=== PATIENT | female | born 1975 | race Caucasian/White ===

== ENCOUNTER 2020-01-05 16:10 | Inpatient (IN) | payer MEDICAID, OTHER ==
[~2020-01-05] VITALS: Ht 154.9 cm; Wt 82.1 kg
[~2020-01-05 16:10] MED LIST: ASPI325T85 PO; AZIT250T PO; PENI250T2 PO
[2020-01-05] MEDS ORDERED: ACETAMINOPHEN 325MG TABLET PO ONE (16:45)
[2020-01-05] MEDS ORDERED: VANCOMYCIN 1 G PREMIX 200 ML IV ONE (16:45)
[2020-01-05] MEDS ORDERED: SODIUM CHLORIDE 0.9% 1000ML BAG (SEPSIS BOLUS) IV ONE (16:45)
[2020-01-05] MEDS ORDERED: PIPERACILLIN/TAZ 3.375G PREMIX 50 ML IV ONE (16:45)
[2020-01-05 17:13] LABS: CHLORIDE 99 mEq/L (98-107); PROTHROMBIN TIME 11.3 sec (9.6-11.0)
[2020-01-05] MEDS ORDERED: POTASSIUM CHLORIDE 20MEQ TABLET SR PO ONE (17:15)
[2020-01-05 17:20] LABS: HEMATOCRIT. 28.5 % (36.0-48.0); HEMOGLOBIN. 8.8 g/dL (12.0-16.0); MEAN CORPUSCULAR HEMOGLOBIN 20.8 pg (28.0-32.0); MEAN CORPUSCULAR VOLUME 67.2 fL (81.0-99.0); MEAN PLATELET VOLUME 8.5 fl (7.4-10.4); PLATELET 239 x1000/uL (130-400); RED BLOOD CELL COUNT 4.24 mill/uL (4.2-5.4); RED CELL DISTRIBUTION WIDTH 17.6 % (11.6-14.6)
[2020-01-05 17:27] LABS: HCG SCREEN NEGATIVE
[2020-01-05 18:43] LABS: NUCLEATED RED BLOOD CELLS 1 /100 WBC; PLATELET ESTIMATE NORMAL
[2020-01-06 03:31] LABS: CLARITY URINE CLEAR (CLEAR); COLOR URINE YELLOW (YELLOW); SPECIFIC GRAVITY URINE 1.013 (1.005-1.030)
[2020-01-06 03:32] LABS: KETONES URINE NEGATIVE (NEGATIVE); LEUKOCYTE ESTERASE URINE NEGATIVE (NEGATIVE); NITRITE URINE NEGATIVE (NEGATIVE); OCCULT BLOOD URINE NEGATIVE (NEGATIVE); PH URINE 5.5 (4.5-8.0); PROTEIN URINE NEGATIVE (NEGATIVE); UROBILINOGEN URINE 0.2 E.U./dL (0.2-1.0)
[2020-01-06 08:00] VITALS: BP 145/69
[2020-01-06 09:14] VITALS: BP 145/68
[2020-01-06] MEDS ORDERED: DEXTROSE 50% WATER 50ML SYRINGE IV PRN (09:45)
[2020-01-06 12:00] VITALS: BP 124/55
[2020-01-06] MEDS ORDERED: ACETAMINOPHEN 325MG TABLET PO PRN (12:30)
[2020-01-06] MEDS ORDERED: ONDANSETRON HCL 4MG/2ML INJ IV PRN (12:30)
[2020-01-06] MEDS ORDERED: KETOROLAC 30MG/ML VIAL IV PRN (12:30)
[2020-01-06] MEDS: INSULIN LISPRO 100 UNITS/ML SUBCUT SCH ×3 (12:42→20:47)
[2020-01-06] MEDS: BLOOD SUGAR DIAGNOSTIC STRIP TEST SCH ×3 (12:42→20:42)
[2020-01-06] MEDS ORDERED: METF-815 PO (14:44)
[2020-01-06] MEDS ORDERED: FERR325T6 PO (14:44)
[2020-01-06] MEDS: CLINDAMYCIN 600MG PREMIX 50 ML IV SCH ×2 (15:51→21:02)
[2020-01-06 16:00] VITALS: BP 145/67
[2020-01-06 17:21] LABS: TOTAL IRON BINDING CAPACITY 420 ug/dL (250-450)
[2020-01-06 20:00] VITALS: BP 140/72
[2020-01-07] VITALS: BP 123/57
[2020-01-07 04:00] VITALS: BP 112/60
[2020-01-07] MEDS: CLINDAMYCIN 600MG PREMIX 50 ML IV SCH (05:41)
[2020-01-07] MEDS: BLOOD SUGAR DIAGNOSTIC STRIP TEST SCH ×2 (05:51→12:25)
[2020-01-07] MEDS: INSULIN LISPRO 100 UNITS/ML SUBCUT SCH ×2 (07:44→12:15)
[2020-01-07 07:56] LABS: HEMATOCRIT. 23.8 % (36.0-48.0); HEMOGLOBIN. 7.5 g/dL (12.0-16.0); MEAN CORPUSCULAR HEMOGLOBIN 21.4 pg (28.0-32.0); MEAN CORPUSCULAR VOLUME 67.8 fL (81.0-99.0); MEAN PLATELET VOLUME 8.7 fl (7.4-10.4); PLATELET 190 x1000/uL (130-400); RED BLOOD CELL COUNT 3.52 mill/uL (4.2-5.4); RED CELL DISTRIBUTION WIDTH 17.8 % (11.6-14.6)
[2020-01-07 08:00] VITALS: BP 123/61
[2020-01-07 08:15] LABS: CHLORIDE 106 mEq/L (98-107)
[2020-01-07] MEDS ORDERED: POTASSIUM CHLORIDE 20MEQ TABLET SR PO NR (08:45)
[2020-01-07 12:00] VITALS: BP 132/66
[2020-01-07] MEDS ORDERED: CLIN300C11 MT (12:01)
[2020-01-07] MEDS ORDERED: DOCU-138 MT (12:01)
[2020-01-07] MEDS ORDERED: FERR325T6 MT (12:01)
[2020-01-07 12:33] LABS: PLATELET ESTIMATE NORMAL
[2020-01-07 13:11] VITALS: BP 112/68
== END 2020-01-07 14:20 | disposition home or self-care (01) | DRG 720 ==
LOC: ER 16:10 → 5WST 17:25 → EDBEDREQ 17:44 → ENRESERV 01-06 07:31
PROVIDERS: ADMIT Internal Medicine; ATTEND Internal Medicine
DX: A41.9 Sepsis, unspecified organism (principal); E87.1 Hypo-osmolality and hyponatremia; L03.115 Cellulitis of right lower limb; D64.9 Anemia, unspecified; E11.9 Type 2 diabetes mellitus without complications; E66.9 Obesity, unspecified; E87.6 Hypokalemia; I10 Essential (primary) hypertension; I25.10 Atherosclerotic heart disease of native coronary artery without angina pectoris; Z68.34 Body mass index [BMI] 34.0-34.9, adult; Z79.82 Long term (current) use of aspirin; Z79.899 Other long term (current) drug therapy
CPT/HCPCS: 36415; 71045; 80048; 80053; 81003; 82728; 82962; 83036; 83540; 83550; 83605; 83880; 84145; 84484; 84703; 85025; 93005; 93306; 99291; J1815; J2543; J3370; J3490; J7030; J7060

== ENCOUNTER 2020-03-27 09:09 | Emergency (ER) | payer MEDICAID ==
[~2020-03-27] VITALS: Ht 154.9 cm; Wt 82.0 kg
[~2020-03-27 09:09] MED LIST changes: -ASPI325T85 PO; -AZIT250T PO; +CLIN300C11 MT; +DOCU-138 MT; +FERR325T6 MT; +FERR325T6 PO; +METF-815 PO; -PENI250T2 PO
[2020-03-27 10:17] LABS: BASOPHILS % 0.4 % (0.0-2.0); EOSINOPHILS % 1.4 % (0.0-5.0); HEMATOCRIT. 28.2 % (36.0-48.0); HEMOGLOBIN. 8.7 g/dL (12.0-16.0); LYMPHOCYTES % 28.2 % (20.0-50.0); MEAN CORPUSCULAR HEMOGLOBIN 20.2 pg (28.0-32.0); MEAN CORPUSCULAR VOLUME 65.6 fL (81.0-99.0); MEAN PLATELET VOLUME 8.6 fl (7.4-10.4); MONOCYTES % 9.6 % (2.0-8.0); NEUTROPHILS % 60.4 % (40.0-76.0); PLATELET 256 x1000/uL (130-400); PROTHROMBIN TIME 10.4 sec (9.6-11.0); RED BLOOD CELL COUNT 4.29 mill/uL (4.2-5.4); RED CELL DISTRIBUTION WIDTH 18.5 % (11.6-14.6)
[2020-03-27 10:20] LABS: CHLORIDE 102 mEq/L (98-107)
[2020-03-27] MEDS ORDERED: MAGNESIUM 2 G PREMIX 50 ML IV ONE (10:30)
[2020-03-27 10:57] LABS: PLATELET ESTIMATE NORMAL
[2020-03-27] MEDS ORDERED: POTASSIUM CHLORIDE 20MEQ TABLET SR PO ONE (11:00)
[2020-03-27] MEDS ORDERED: CALCIUM GLUCONATE 100MG/ML 10ML VIAL IV ONE (11:30)
[2020-03-27 13:25] VITALS: BP 140/58
== END 2020-03-27 13:43 | disposition home or self-care (01) ==
LOC: ER 09:09
DX: E87.6 Hypokalemia (principal); M79.89 Other specified soft tissue disorders; E83.51 Hypocalcemia; D64.9 Anemia, unspecified; R03.0 Elevated blood-pressure reading, without diagnosis of hypertension; R79.89 Other specified abnormal findings of blood chemistry; I45.10 Unspecified right bundle-branch block; E11.9 Type 2 diabetes mellitus without complications; I25.10 Atherosclerotic heart disease of native coronary artery without angina pectoris; Z95.1 Presence of aortocoronary bypass graft; Z79.899 Other long term (current) drug therapy; Z98.890 Other specified postprocedural states
CPT/HCPCS: 36415; 71045; 80053; 83880; 84484; 85025; 85610; 85730; 86850; 86900; 86901; 93005; 93970; 96365; 96375; 99285; J0610; J3475

== ENCOUNTER 2021-07-27 17:01 | Emergency (ER) | payer MEDICAID ==
[~2021-07-27] VITALS: Ht 154.9 cm; Wt 84.0 kg
[~2021-07-27 17:01] MED LIST changes: -CLIN300C11 MT; +CLIN300C12 MT; -METF-815 PO; +METF-873 PO
[2021-07-27] MEDS ORDERED: IBUPROFEN 400MG TABLET PO ONE (21:00)
[2021-07-27] MEDS ORDERED: CEFTRIAXONE SODIUM 1 G/VIAL IM ONE (21:00)
[2021-07-27] MEDS ORDERED: SULFAMETHOXAZOLE/TRIMETHOPRIM 800/160MG TABLET PO ONE (21:00)
[2021-07-28] MEDS ORDERED: CEPH500T MT (00:23)
[2021-07-28] MEDS ORDERED: SULF1TAB48 MT (00:23)
[2021-07-28] MEDS ORDERED: IBUP-2028 MT (00:23)
[2021-07-28 00:59] VITALS: BP 142/76
== END 2021-07-28 01:01 | disposition home or self-care (01) ==
LOC: ER 17:01
DX: M79.604 Pain in right leg (principal); L03.115 Cellulitis of right lower limb; D64.9 Anemia, unspecified; E11.9 Type 2 diabetes mellitus without complications; Z90.49 Acquired absence of other specified parts of digestive tract; Z79.899 Other long term (current) drug therapy
CPT/HCPCS: 73590; 81025; 82962; 93971; 96372; 99284; J0696

== ENCOUNTER 2021-09-25 14:36 | Emergency (ER) | payer MEDICAID ==
[~2021-09-25] VITALS: Ht 154.9 cm; Wt 69.0 kg
[~2021-09-25 14:36] MED LIST changes: +CEPH500T MT; +IBUP-2028 MT; +SULF1TAB48 MT
[2021-09-25] MEDS ORDERED: HYDROCODONE/ACETAMINOPHEN 5/325MG TABLET PO STA (15:09)
[2021-09-25 15:10] LABS: BASOPHILS % 0.2 % (0.0-2.0); EOSINOPHILS % 0.2 % (0.0-5.0); HEMATOCRIT. 30.3 % (36.0-48.0); HEMOGLOBIN. 9.1 g/dL (12.0-16.0); LYMPHOCYTES % 9.3 % (20.0-50.0); MEAN CORPUSCULAR HEMOGLOBIN 20.8 pg (28.0-32.0); MEAN CORPUSCULAR VOLUME 69.5 fL (81.0-99.0); MEAN PLATELET VOLUME 8.8 fl (7.4-10.4); MONOCYTES % 8.9 % (2.0-8.0); NEUTROPHILS % 81.4 % (40.0-76.0); PLATELET 299 x1000/uL (130-400); RED BLOOD CELL COUNT 4.36 mill/uL (4.2-5.4); RED CELL DISTRIBUTION WIDTH 18.6 % (11.6-14.6)
[2021-09-25 15:18] LABS: CHLORIDE 96 mEq/L (98-107)
[2021-09-25 16:48] LABS: HCG SCREEN NEGATIVE
[2021-09-25 16:59] LABS: PLATELET ESTIMATE NORMAL
[2021-09-25 17:30] LABS: CLARITY URINE CLEAR (CLEAR); COLOR URINE YELLOW (YELLOW); KETONES URINE 4+ (NEGATIVE); LEUKOCYTE ESTERASE URINE NEGATIVE (NEGATIVE); NITRITE URINE NEGATIVE (NEGATIVE); OCCULT BLOOD URINE NEGATIVE (NEGATIVE); PH URINE 5.5 (4.5-8.0); PROTEIN URINE 3+ (NEGATIVE)
[2021-09-25 17:38] LABS: UCG SCREEN NEGATIVE
[2021-09-25 20:35] VITALS: BP 122/50
== END 2021-09-25 21:03 | disposition short-term general hospital (02) ==
LOC: ER 14:36 → CANBEDREQ 21:12
DX: K81.0 Acute cholecystitis (principal); E11.9 Type 2 diabetes mellitus without complications; E87.6 Hypokalemia; Z79.899 Other long term (current) drug therapy; Z98.890 Other specified postprocedural states
CPT/HCPCS: 36415; 74177; 80053; 81003; 81025; 82962; 84703; 85025; 93005; 99285